=== PATIENT | male | born 1990 | race Caucasian/White ===

== ENCOUNTER → 2017-10-13 16:31 | Outpatient (CLI) | payer OTHER | END | disposition home or self-care (01) | LOC: D.MRI 10-10 16:30 | DX: M54.16 Radiculopathy, lumbar region (principal) ==

== ENCOUNTER 2019-01-03 17:52 | Emergency (ER) | payer OTHER ==
[~2019-01-03] VITALS: Ht 175.3 cm; Wt 79.5 kg
[2019-01-03 18:21] VITALS: Ht 175.3 cm; Wt 79.5 kg
[2019-01-03] MEDS ORDERED: BACTRIM 400-801 TAB PO (21:00)
[2019-01-03] MEDS ORDERED: CLEOCIN HCL300 MG PO (21:00)
[2019-01-03 21:15] VITALS: BP 118/61
== END 2019-01-03 21:15 | disposition home or self-care (01) ==
LOC: D.ER 17:52
DX: S50.312A Abrasion of left elbow, initial encounter (principal); L08.9 Local infection of the skin and subcutaneous tissue, unspecified; W18.30XA Fall on same level, unspecified, initial encounter; Y93.89 Activity, other specified; Y92.89 Other specified places as the place of occurrence of the external cause

== ENCOUNTER 2020-02-20 19:33 | Emergency (ER) | payer OTHER ==
[2019-01-03 18:21] VITALS: Ht 175.3 cm
[~2020-02-20 19:33] MED LIST: BACTRIM 400-801 TAB PO; CLEOCIN HCL300 MG PO
== END 2020-02-20 20:20 | disposition left against medical advice (07) ==
LOC: D.ER 19:33
DX: R07.82 Intercostal pain (principal)

== ENCOUNTER 2020-03-16 13:54 | Emergency (ER) | payer OTHER ==
[~2020-03-16] VITALS: Ht 175.3 cm; Wt 77.3 kg
[2020-03-16 14:10] VITALS: BP 119/68; Ht 175.3 cm; Wt 77.3 kg
== END 2020-03-16 16:04 ==
LOC: D.ER 13:54
DX: R10.9 Unspecified abdominal pain (principal)